=== PATIENT | male | born 1945 | race Caucasian/White ===

== ENCOUNTER 2016-09-26 15:04 | Emergency (ER) | payer OTHER ==
[2016-09-26 15:39] VITALS: BP 150/88; PULSE 89; RESP 18; TEMP 98.2; O2SAT 94
--- NOTE | 2016-09-26 16:35 | UCPHY ---
H & P Time Seen by Provider: 09/26/16 16:32 Patient Type: New HPI/ROS: CHIEF COMPLAINT: Left index injury HISTORY OF PRESENT ILLNESS: This is a 70-year-old male which was working with a transmission on a hoist. Evidently the transmission shifted and pinched his finger between the body of the car and the transmission. Fortunately, it was still on the hoist any was able to push the transmission away and free his hand. He complains of moderate pain over the middle aspect of the left index finger, he is right-handed. He notes that he has somewhat decreased flexion but full extension. He denies any numbness or tingling paresthesias. This all just happened prior to admission Reveuw if Systems: Constitutional - feeling well prior to the injury Musculoskeletal - no joint or muscle pain. Integument - no rashes or wounds Neurological - no numbness, tingling, or paresthesias. Smoking Status: Never smoked Physical Exam: General Appearance: Alert, no distress. Afebrile. Extremities: Mild soft tissue swelling and ecchymosis present on the palmar aspect of the middle phalanx extending to a little bit to the distal and proximal phalanx as well. There are no wounds evident. Neurological: NV intact. Skin: Skin is intact. Warm and dry, no rashes. no lymphangitis. . Constitutional: Initial Vital Signs Temperature (C) 36.8 C 09/26/16 15:30 Heart Rate 89 09/26/16 15:30 Respiratory Rate 18 09/26/16 15:30 Blood Pressure 150/88 H 09/26/16 15:30 O2 Sat (%) 94 09/26/16 15:30 O2 Delivery Mode Room Air Allergies/Adverse Reactions: No Known Allergies Allergy (Unverified 09/26/16 15:39) Home Medications: Medication Instructions Recorded Amlodipine Besylate 09/26/16 Aspirin 81mg (*) 09/26/16 Atorvastatin Calcium 09/26/16 Diuretic 09/26/16 Medical Decision Making - Diagnostics Imaging: My Plain Film Review: Plain film of three-view left index finger view series. Interpreted by radiologist. Films reviewed me. Moderate osteoarthritic changes but no fracture ED Course/Re-evaluation: I had the patient go ahead and flex his fingers fully as best as able and is almost there at 4 as range of motion ovarian the index finger to the palm but not quite. I suspect that he will be able to do that in 2 weeks time. At that time if that is unable to be performed by him he should contact his PCP for arranging physical therapy. In the meantime for the next week he will be in a splint to protect the digit allowed to recover. Differential Diagnosis: The differential diagnosis includes but is not limited to: Fracture, Sprain, Strain, Dislocation, Nerve injury, Contusion Departure - Departure Disposition: Home, Routine, Self-Care Clinical Impression: Finger contusion Condition: Good Instructions: Contusion in Adults (ED) Additional Instructions: Use a splint for the next 1 week. In 2 weeks time if he cannot clench fist completely like a showed you, then see a hand surgeon. Referrals: Isra Valero MD [Primary Care Provider] - As per Instructions - PQRS PQRS Measurement: 134: Depression screening and followup, PRIME MD-PHQ2 (12 years and older) Over the last 2 weeks, how often have you been bothered by any of the following problems? 1. Feeling down, depressed, or hopeless? 2. Little interest or pleasure in doing things? Patient answered no to both 1 and 2 130: Documentation of medications. Reviewed all patient medications, doses, route and frequency. . 226: Do you smoke? No. 47: 65 and older: Advanced care planning. Patient designates surrogate decision maker as son, Edison. 51: 18 years old and older with diagnosis of COPD, spirometry performance. Patient has no history of COPD 52: 18 years old and older with COPD and symptoms of COPD or FEV1<60% predicted prescribed a B Agonist. Patient has no history of COPD
== END 2016-09-26 16:49 | disposition home or self-care (01) ==
LOC: CED 15:04
DX: S60.022A Contusion of left index finger without damage to nail, initial encounter (principal); M19.042 Primary osteoarthritis, left hand; W23.0XXA Caught, crushed, jammed, or pinched between moving objects, initial encounter
CPT/HCPCS: 73130; G0463; 99203-PO

== ENCOUNTER 2017-11-08 12:08 | Inpatient (IN) | payer OTHER ==
--- NOTE | 2017-11-08 12:17 | CPEKG ---
Heart Rate: 88 RR Interval: 682 P-R Interval: 204 QRSD Interval: 88 QT Interval: 364 QTC Interval: 441 P Exeland: -36 QRS Exeland: -18 T Wave Exeland: -25 EKG Severity - ABNORMAL ECG - EKG Impression: SINUS RHYTHM EKG Impression: VENTRICULAR PREMATURE COMPLEX EKG Impression: LOW VOLTAGE IN FRONTAL LEADS EKG Impression: CONSIDER INFERIOR INFARCT EKG Impression: BORDERLINE T ABNORMALITIES, INFERIOR LEADS EKG Impression: pvc Electronically Signed By: Bahman Serrano 10-Nov-2017 06:10:01
[2017-11-08 12:28] LABS: PLATELET COUNT 275 10^3/uL (150-400)
[2017-11-08] MEDS ORDERED: NS 1,000 ML IV ONE (12:37)
--- NOTE | 2017-11-08 13:15 | EDPHY ---
H & P Stated Complaint: Weakness/fatigue, SOB, and dizziness since Thursday. Time Seen by Provider: 11/08/17 12:13 HPI/ROS: CHIEF COMPLAINT: Weakness, dizziness, tachycardia HISTORY OF PRESENT ILLNESS: This is a 71-year-old male who reports that for the last 4 days he has been progressively weak. He describes feeling entirely wiped out. Is unable to perform his usual activities secondary to profound weakness. He states when he rolls over in bed he even feels like his heart rate increases. He has had some lightheadedness but no chest pain or shortness of breath. No fainting. No pain. No headache, cough, chest pain, abdominal pain, vomiting, or diarrhea. He does note that yesterday he had what he thought was a sinus bleeding and coughed up some blood. He has also noted dark, black stools for the last several weeks. Patient also reports that he started taking a full dose aspirin about 30 days ago because he ran out of a baby aspirin. A.m. Similar episode of feeling weak approximately 3 weeks ago. Was seen by his primary care physician. Evaluation at that time was negative. REVIEW OF SYSTEMS: Aside from elements discussed in the HPI, a comprehensive 10-point review of systems was reviewed and is negative. PAST MEDICAL HISTORY: Hypertension. Skin cancer. SOCIAL HISTORY: Lives with his son. Nonsmoker. No alcohol. VITAL SIGNS Reviewed by me. GENERAL: Pleasant elderly male. Quite pale. HEENT: Atraumatic. Eyes: No icterus, no injection. Pale conjunctiva. Mouth : Pale mucous membranes. No erythema or lesions. Neck: supple with no adenopathy. LUNGS: Clear to auscultation bilaterally, no wheezes, rhonchi or rales. CARDIAC: Borderline tachycardic, regular. Systolic murmur auscultated. ABDOMEN: Soft, nontender, nondistended, bowel sounds normal. RECTAL: Small amount brown/black stool on the glove. BACK: No CVA tenderness. EXTREMITIES: No trauma. No edema. Range of motion is normal throughout. NEURO: Alert and oriented, grossly nonfocal. SKIN: Warm and dry, pale nail beds. PSYCHIATRIC: Normal mentation, no agitation. - Personal History Current Tetanus/Diphtheria Vaccine: No Current Tetanus Diphtheria and Acellular Pertussis (TDAP): No - Medical/Surgical History Hx Asthma: No Hx Chronic Respiratory Disease: No Hx Diabetes: No Hx Cardiac Disease: No Hx Renal Disease: No Hx Cirrhosis: No Hx Alcoholism: No Hx HIV/AIDS: No Hx Splenectomy or Spleen Trauma: No Other PMH: HTN. Basal cell ca. hyperlipidemia - Social History Smoking Status: Never smoked Constitutional: Initial Vital Signs Temperature (C) 36.7 C 11/08/17 12:15 Heart Rate 79 11/08/17 12:15 Respiratory Rate 18 11/08/17 12:15 Blood Pressure 127/63 H 11/08/17 12:15 O2 Sat (%) 98 11/08/17 12:15 O2 Delivery Mode Room Air Allergies/Adverse Reactions: No Known Allergies Allergy (Verified 11/08/17 12:15) Home Medications: Medication Instructions Recorded amLODIPine BESYLATE [Norvasc 5 mg 5 mg PO DAILY 09/26/16 (*)] Atorvastatin Calcium [Lipitor 10 5 mg PO HS 11/08/17 mg (*)] Hydrochlorothiazide [HCTZ (*)] 25 mg PO DAILY 11/08/17 Acetaminophen [Tylenol 325mg (*)] 650 mg PO Q4HRS PRN tab 11/10/17 Pantoprazole Sodium [Protonix 40mg 40 mg PO BID #60 tab 11/10/17 (*)] Medical Decision Making - Diagnostics EKG Interpretation: 12-LEAD EKG: Please see the full report in [facility]. My interpretation: Low voltage in the limb leads, no acute ischemic changes. ED Course/Re-evaluation: 8-year-old male presents to the emergency department complaining of profound weakness for the last 4 days. Denies any pain, chest pain, or shortness of breath. He denies any peripheral edema. Does report vomiting some bright red blood which he assumed was from a sinus bleeding in his throat several days ago. He has also noted dark stools and has recently increased his normal 81 mg of aspirin to 324 mg of aspirin. On examination patient has brown/black stool which is guaiac positive. His hemoglobin hematocrit are 9 and 26, down from 14 and 43 3 weeks ago. White count is noted to be 17,000. Renal function intact. Troponin negative. Patient had an IV placed and received a L normal saline. His course was discussed with the hospitalist service. He will be admitted to [facility], Dr. Missy Wan. Remains hemodynamically stable. Patient's care was discussed with the Dr. Carrasquillo from Gastroenterology. 2:30 p.m.. Patient is resting comfortably. We are still awaiting ambulance transfer to [facility]. Patient given a protonix infusion. Differential Diagnosis: Differential diagnosis of the patient's weakness was considered including but not limited to electrolyte abnormality, anemia, cardiac ischemia, arrhythmias and infectious causes. Consult/Admit Bed Type: Dr Wan, [facility] surg - Data Points Laboratory Results: Laboratory Results 11/08/17 12:20 11/08/17 12:20 Medications Given: Discontinued Medications Acetaminophen (Tylenol) 650 mg PO ONCE ONE Stop: 11/09/17 13:51 Last Admin: 11/09/17 15:03 Dose: 650 mg Amlodipine Besylate (Norvasc) 5 mg PO DAILY LELIA Stop: 05/08/18 08:59 Last Admin: 11/09/17 09:17 Dose: Not Given Atorvastatin Calcium (Lipitor) 5 mg PO HS LELIA Stop: 05/07/18 20:59 Last Admin: 11/09/17 22:13 Dose: 5 mg Sodium Chloride (Ns) 1,000 mls @ 0 mls/hr IV ONCE ONE; Wide Open PRN Reason: Protocol Stop: 11/08/17 12:38 Last Admin: 11/08/17 12:43 Dose: 1,000 mls Sodium Chloride (Ns) 500 mls @ 1,000 mls/hr IV EDNOW ONE PRN Reason: Protocol Stop: 11/08/17 14:56 Last Admin: 11/08/17 14:29 Dose: 500 mls Pantoprazole Sodium (Protonix) 40 mg IVP ONCE ONE Stop: 11/08/17 14:42 Last Admin: 11/08/17 14:44 Dose: 40 mg Pantoprazole Sodium (Protonix) 40 mg IVP BID LELIA Stop: 05/07/18 20:59 Last Admin: 11/10/17 09:12 Dose: 40 mg Departure - Departure Disposition: [facility] Inpatient Acute Clinical Impression: Weakness Anemia Qualifiers: Anemia type: other cause Other causes of anemia: other cause, not classified Qualified Code(s): D64.89 - Other specified anemias Gastrointestinal hemorrhage Qualifiers: GI bleed type/associated pathology: unspecified gastrointestinal hemorrhage type Qualified Code(s): K92.2 - Gastrointestinal hemorrhage, unspecified Condition: Good
[2017-11-08] MEDS ORDERED: NS 500 ML IV ONE (14:27)
[2017-11-08] MEDS ORDERED: PANTOPRAZOLE SODIUM 40 MG VIAL IVP ONE (14:41)
[2017-11-08] MEDS ORDERED: PANTOPRAZOLE SODIUM 40 MG VIAL ONE (14:43)
[2017-11-08] MEDS ORDERED: ONDANSETRON 4 MG/2 ML VIAL IVP PRN (19:33)
[2017-11-08] MEDS ORDERED: ACETAMINOPHEN 325 MG TAB PO PRN (19:33)
[2017-11-08] MEDS ORDERED: ONDANSETRON DISINTEGRATING 4 MG TAB PO PRN (19:33)
[2017-11-08] MEDS: PANTOPRAZOLE SODIUM 40 MG VIAL IVP SCH (20:30)
[2017-11-08] MEDS: ATORVASTATIN CALCIUM 10 MG TAB PO SCH (20:30)
--- NOTE | 2017-11-08 20:30 | GHP ---
[f rep st] HISTORY AND PHYSICAL DATE OF ADMISSION: 11/08/2017 CHIEF COMPLAINT: Fatigue, melena. HISTORY OF PRESENT ILLNESS: A 71-year-old male, who started having melena about 3 days ago. He had 1 episode where he coughed up some blood, but no other symptoms that would suggest epistaxis. Melena has continued, although his stools have firmed up somewhat. He has been fatigued as well. About 30 days ago, he increased his aspirin dose from 81 mg to a full aspirin. He stopped his aspirin severa l days ago. He denies any chest pain, shortness of breath. He does take occasional NSAIDs, but not recently. REVIEW OF SYSTEMS: A 10-point review of systems was obtained and has been negative. PAST MEDICAL HISTORY: 1. Hypertension. 2. Hyperlipidemia. MEDICATIONS: Reviewed. SOCIAL HISTORY: No smoking or alcohol. FAMILY HISTORY: Reviewed and noncontributory. PHYSICAL EXAM: VITAL SIGNS: Afebrile. Blood pressure is 113/53, heart rate 82, oxygen saturation 9 6% on room air. GENERAL: The patient is well developed in no apparent distress. HEENT: Nonicteric sclerae. Extraocular movements intact. Moist mucous membranes. NECK: Supple. No thyromegaly. L UNGS: Good effort. Clear to auscultation bilaterally. CARDIOVASCULAR: Regular rate and rhythm. N o murmurs, rubs, or gallops. ABDOMEN: Positive bowel sounds. Soft, nontender, and nondistended. N o hepatosplenomegaly. EXTREMITIES: No clubbing, cyanosis, or edema. SKIN: Without rash. Warm, dry , intact. NEUROLOGIC: Alert and oriented x3. Moving all 4 extremities equally. PSYCH: Normal moo d and affect. LABORATORY DATA: White count elevated at 17, hemoglobin 9.2. BUN elevated at 46. Occult stool posi tive. ASSESSMENT/PLAN: This is a 71-year-old male, presented with upper gastrointestinal bleed. 1. Upper gastrointestinal bleed. The patient is hemodynamically stable. It seems like his bleeding has tapered off some. He will be started on Protonix. I have a call out to Gastroenterology for po ssible EGD tomorrow. Will recheck his hemoglobin in the morning. Holding aspirin. 2. Hypertension. We will hold his hydrochlorothiazide. We will continue the amlodipine. /[id number]/MODL
[2017-11-09 06:04] LABS: PLATELET COUNT 189 10^3/uL (150-400)
[2017-11-09] MEDS ORDERED: PROPOFOL/EMULSION 500 MG/50 ML BOTTLE IV ONE (07:58)
[2017-11-09] MEDS ORDERED: LIDOCAINE 2% 5 ML SDV ONE (07:58)
[2017-11-09] MEDS ORDERED: ALBUTEROL 3 ML DEYVIAL IH PRN (07:59)
[2017-11-09] MEDS ORDERED: ONDANSETRON 4 MG/2 ML VIAL IVP PRN (07:59)
[2017-11-09] MEDS ORDERED: NALOXONE HCL 0.4 MG/ML INJ IVP PRN (07:59)
[2017-11-09] MEDS ORDERED: LR 1,000 ML IV SCH (08:00)
[2017-11-09] MEDS ORDERED: EPINEPHrine 1 MG/ML INJ ONE (08:07)
--- NOTE | 2017-11-09 08:20 | PDANEPAE ---
ANE History of Present Illness EGD ANE Past Medical History - Cardiovascular History Hx Hypertension: Yes - Pulmonary History Hx Oxygen in Use at Home: No Hx Sleep Apnea: No Sleep Apnea Screening Result - Last Documented: Positive - Endocrine History Hx Diabetes: No ANE Review of Systems Review of Systems: - Exercise capacity Exercise capacity: >=4 METS ANE Patient History - Allergies Allergies/Adverse Reactions: No Known Allergies Allergy (Verified 11/08/17 12:15) - Home Medications Home Medications: amLODIPine BESYLATE [Norvasc 5 mg (*)] 5 mg PO DAILY 09/26/16 [Last Taken ] Aspirin [Aspirin 81mg (*)] 81 mg PO DAILY 11/08/17 [Last Taken 11/04/17] Atorvastatin Calcium [Lipitor 10 mg (*)] 5 mg PO HS 11/08/17 [Last Taken ] Hydrochlorothiazide [HCTZ (*)] 25 mg PO DAILY 11/08/17 [Last Taken 11/08/17] - NPO status NPO Since - Liquids (Date): 11/08/17 NPO Since - Liquids (Time): 23:59 NPO Since - Solids (Date): 11/08/17 NPO Since - Solids (Time): 23:59 - Smoking Hx Smoking Status: Never smoked ANE Labs/Vital Signs - Labs Result Diagrams: 11/09/17 04:40 11/09/17 04:40 - Vital Signs Blood Pressure: 141/69 Heart Rate: 76 Respiratory Rate: 16 O2 Sat (%): 98 Height: 172.72 cm Weight: 105.233 kg ANE Physical Exam - Airway Neck exam: FROM Mallampati Score: Class 2 Mouth exam: normal dental/mouth exam - Pulmonary Pulmonary: clear to auscultation - Cardiovascular Cardiovascular: regular rate and rhythym - ASA Status ASA Status: II ANE Anesthesia Plan Anesthesia Plan: GA with mask
--- NOTE | 2017-11-09 08:25 | POSTANESTH ---
Post Anesthetic Evaluation Cardiovascular Status: Normal, Stable Respiratory Status: Normal, Stable Level of Consciousness/Mental Status: Can Participate in Eval, Alert and Oriented Pain Control: Adequate, Prn Tx Ordered Nausea/Vomiting Control: Adequate, Prn Tx Ordered Complications Possibly Related to Anesthesia: None Noted
--- NOTE | 2017-11-09 08:42 | GCON ---
[f rep st] CONSULTATION DATE OF CONSULTATION: 11/09/2017 CONSULTING PHYSICIAN: Missy Wan MD REASON FOR CONSULTATION: Melenic stools. CHIEF COMPLAINT: Melenic stool/weakness. HISTORY OF PRESENT ILLNESS: The patient is a 71-year-old male with a history of NSAID use, who presents to [facility] with complaints of weakness, as well as melenic stools. The patient has been complaining of weakness for at least the last 4-5 days. Due to his weakness, it was hard for him to do his activities of daily living. He also has noticed some shortness of breath, as well as being lightheaded. He states that he may have coughed some blood up a few days ago and ever since then has had 1 melanotic bowel movement each day. The patient denies any exacerbating or alleviating factors to his symptoms. On blood work, he was noted to have a hemoglobin of 9.2. The patient denies any dysphagia, odynophagia, chest pain, or change in recent bowel movements. He did have a colonoscopy approximately 8 years ago and due to a personal history of polyps, was recommended to have a repeat in 5 years, which he has not done. I am being asked by Dr. Wan to evaluate this patient in consultation regarding his melenic stool/anemia. PAST MEDICAL HISTORY: 1. Hypertension. 2. Hyperlipidemia. 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 ALLERGIES: NKDA. MEDICATIONS: 1. Amlodipine. 2. Hydrochlorothiazide. 3. Statin. SOCIAL HISTORY: No history of any alcohol or tobacco use. FAMILY HISTORY: No history of colon cancer or stomach cancer. REVIEW OF SYSTEMS: A 14-point comprehensive review of systems was asked. Pertinent positives and negatives per HPI. PHYSICAL EXAM: VITAL SIGNS: Blood pressure 141/69, temperature 36.6, heart rate 76, respirations 16. GENERAL: Awake, alert, oriented x3. No distress. HEENT: Anicteric sclerae. Moist mucosa. NECK: No JVD. CARDIOVASCULAR: Regular rate and rhythm. Positive S1, S2. No murmurs or gallops appreciated. LUNGS: Clear to auscultation bilaterally. No wheezes, rales or rhonchi. ABDOMEN: Soft, nontender, nondistended. Positive bowel sounds. No guarding or rebound. EXTREMITIES: No clubbing, cyanosis, or edema. NEUROLOGIC: 2 through 12 grossly intact. PSYCH: Normal affect. NEUROLOGIC: 2 through 12 grossly intact. BLOOD WORK: WBCs 8.65, hemoglobin 6.9, hematocrit 20.6, platelets 189. Sodium 142, potassium 3.3, chloride 108, bicarb 26, BUN 27, creatinine 0.8, AST 19, ALT 38, albumin 2.7. Hemoccult stool positive. ASSESSMENT AND PLAN: 1. Melenic stools- with significant post hemorrhagic anemia. Does take a nonsteroidal anti-inflammatory. At this time, recommend to proceed with upper endoscopy to delineate the cause of the symptoms. Etiology? Peptic ulcer disease versus other? The risks of infection, bleeding, perforation, and sedation were discussed. All questions answered. Informed consent was obtained. 2. History of polyps- would recommend repeat colonoscopy, and this can be done as an outpatient. 3. Hypertension. 4. Hyperlipidemia. /[id number]/MODL MTDD
--- NOTE | 2017-11-09 08:43 | GIREPORT ---
[facility] Surgical Services - Endoscopy Department Patient Name: Neeta Bragg Procedure Date: 11/09/2017 7:57 AM Patient Type: Inpatient Attending MD/ ER Physician: Etienne Carrasquillo MD Procedure: Upper GI endoscopy Indications: Melena Patient Profile: 71 year old male presents for evaluaton of melena as well as post hemorrhagic anemia. Providers: Etienne Carrasquillo MD Medicines: Monitored Anesthesia Care Complications: No immediate complications. Estimated blood loss: Minimal. Description of Procedure: After obtaining informed consent, the endoscope was passed under direct vision. Throughout the procedure, the patient's blood pressure, pulse, and oxygen saturations were monitored continuously. The Endoscope was intro duced through the mouth, and advanced to the second part of duodenum. The upp er GI endoscopy was accomplished without difficulty. The patient tolerated th e procedure well. Findings: There were esophageal mucosal changes consistent with long-segment Hawkins ett's esophagus present in the lower third of the esophagus. The maximum longitudinal extent of these mucosal changes was 10 cm in length. A 1cm ulcer was noted in the distal esophagus in the field of Barretts. The m ucosa around the ulcer was biopsied as well as the more proximal mucosa. A large hiatal hernia was present. Patchy mildly erythematous mucosa was found in the gastric body and in the gastric antrum. Biopsies were taken with a cold forceps for histology. The examined duodenum was normal. Biopsies for histology were taken wit h a cold forceps for evaluation of celiac disease. Estimated Blood Loss: Estimated blood loss was minimal. 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 Biopsies taken . - Large hiatal hernia. - Erythematous mucosa in the gastric body and antrum. Biopsied. - Normal examined duodenum. Biopsied. Recommendation: - Return patient to hospital [facility] for ongoing care. - Follow an antireflux regimen. - Use a proton pump inhibitor PO BID. - Await pathology results. - Will need repeat EGD in 8 weeks as well as colonoscopy. - GI will sign off thank you for the consultation. - Thank you for allowing me to participate in the care of your patient. Attending Participation: I personally performed the entire procedure. Etienne Carrasquillo MD Etienne Carrasquillo MD 11/09/2017 8:42:46 AM This report has been signed electronicallyEtienne Carrasquillo MD Number of Addenda: 0 Note Initiated On: 11/09/2017 7:57 AM [email or web address]}
[2017-11-09] MEDS ORDERED: amLODIPine BESYLATE 5 MG TAB PO SCH (09:00)
[2017-11-09] MEDS: PANTOPRAZOLE SODIUM 40 MG VIAL IVP SCH ×2 (09:17→22:14)
--- NOTE | 2017-11-09 12:33 | ASMTCASEMG ---
Living Arrangements What is your living Answers: Alone arrangement? Who do you live with? Type Of Residence What kind of residence do Answers: House you live in? Discharge Plan Comments Coordination Status Comments Notes: Pt is a 71 y/o man admitted w/ anemia, weakness and GI hemorrhaging. Pt had a barretts esophagus procedure today. Pt may able to d/c independent without any needs. No therapies ordered at this time. CM available for changes. Plan: Independent Date Signed: 11/09/2017 12:33 PM Electronically Signed By:FLAVIA Rousseau
--- NOTE | 2017-11-09 13:09 | HOSPPROG ---
Hospitalist Progress Note Assessment/Plan: Patient is a 71-year-old male who started having melena approximately 3 days prior to his admission. He is on aspirin daily and also takes occasional NSAIDs. Today is my 1st encounter with the patient. Chart reviewed. * upper GI bleed -s/p scope, nothing acute seen * acute blood loss anemia -will transfuse one unit of prbc -patient is feeling poorly, tired, worn out, blood pressure is low * hypertension -now w hypotension,hold amlodipine *plan: will require another midnight stay to assure stability with his hgb and hct, will transfuse a unit of PRBC's, patient understands the risks and benefits Subjective: Mohan is feeling tired, run down, no energy. Objective: Vital Signs Temp Pulse Resp BP Pulse Ox 36.9 C 67 16 109/60 96 11/09/17 12:06 11/09/17 12:06 11/09/17 12:06 11/09/17 12:06 11/09/17 12:06 Laboratory Results 11/09/17 09:10 11/09/17 04:40 11/08/17 11/09/17 11/10/17 05:59 05:59 05:59 Intake Total 1500 400 Output Total 0 Balance 1500 400 - Physical Exam Constitutional: appears nourished, not in pain Eyes: PERRL Ears, Nose, Mouth, Throat: hearing normal Cardiovascular: regular rate and rhythym Respiratory: no respiratory distress Gastrointestinal: normoactive bowel sounds Skin: warm, No normal color (pale) Neurologic: AAOx3 Psychiatric: interacting appropriately ICD10 Worksheet Patient Problems: Problems Problem Status Onset Anemia Acute Gastrointestinal hemorrhage Acute Weakness Acute
[2017-11-09] MEDS ORDERED: ACETAMINOPHEN 325 MG TAB PO ONE (13:50)
--- NOTE | 2017-11-09 20:22 | PDMN ---
Medical Necessity Medical necessity: change to IP; los>2mn for UGIB, acute blood loss anemia, fatigue, and hypotension s/p EGD; requires transfusion, monitor h&h; comorbid HTN, HLD, on ASA (stopped [employer]); per order and progress note 11/09/17
[2017-11-09] MEDS: ATORVASTATIN CALCIUM 10 MG TAB PO SCH (22:13)
[2017-11-10 07:56] VITALS: BP 129/58
[2017-11-10] MEDS: PANTOPRAZOLE SODIUM 40 MG VIAL IVP SCH (09:12)
--- NOTE | 2017-11-10 09:23 | HOSPPROG ---
Hospitalist Progress Note Assessment/Plan: Patient is a 71-year-old male who started having melena approximately 3 days prior to his admission. He is on aspirin daily and also takes occasional NSAIDs. * upper GI bleed -s/p EGD with noted ulcer on the long segment of Marquez, has a large hiatal hernia -needs repeat EGD and colonoscopy in 6 weeks * acute blood loss anemia -transfused a unit of PRBC's w some improvement * hypertension -stable *plan:recheck h and h to assure stability, poss dc later Subjective: Mohan is feeling much better today, no complaints. Objective: Vital Signs Temp Pulse Resp BP Pulse Ox 36.6 C 67 18 129/58 H 95 11/10/17 07:55 11/10/17 07:55 11/10/17 07:55 11/10/17 07:55 11/10/17 07:55 Laboratory Results 11/10/17 04:36 11/09/17 04:40 11/09/17 11/10/17 11/11/17 05:59 05:59 05:59 Intake Total 1500 1850 Output Total 1350 400 Balance 1500 500 -400 - Physical Exam Constitutional: no apparent distress, appears nourished, obese Eyes: PERRL Ears, Nose, Mouth, Throat: hearing normal Respiratory: no respiratory distress Skin: warm Musculoskeletal: full muscle strength Neurologic: AAOx3 Psychiatric: interacting appropriately ICD10 Worksheet Patient Problems: Problems Problem Status Onset Anemia Acute Gastrointestinal hemorrhage Acute Weakness Acute
--- NOTE | 2017-11-10 12:53 | GDS ---
[f rep st] DISCHARGE SUMMARY DISCHARGE DIAGNOSES: 1. Upper gastrointestinal bleed. 2. Acute blood loss anemia. 3. Hypertension. HISTORY: Briefly, the patient is a 71-year-old male who started having melena approximately 3 days prior to his admission. He is on aspirin daily and also takes occasional NSAIDs. HOSPITAL COURSE: 1. Upper GI bleed, status post EGD. Has an ulcer on the long segment of Campbell 's, has a large hiatal hernia. He has multiple labs pending. He will need to get a repeat EGD and colonoscopy in 6 weeks. 2. Acute blood loss anemia. He was transfused a unit of packed red blood cells with improvement. 3. Hypertension, stable. DISCHARGE CONDITION: Stable. Blood pressure is 129/58. Heart rate is 67. Respiratory rate of 18. O2 sats on room air are 95%. Temperature is 36.6 Celsius. DISCHARGE MEDICATIONS: Please see the EMR. DISCHARGE INSTRUCTIONS: 1. To get a repeat H and H at the end of this week with his primary care provider. Stop aspirin and all NSAIDs until he follows up with Gastroenterology. 2. To take Protonix b.i.d. for 4 weeks and then daily. 3. To follow up with Dr. Carrasquillo. He has multiple labs pending in regard to biopsies during his procedure here. Copy requested to: Dr. Carrasquillo /[id number]/MODL MTDD
== END 2017-11-10 12:27 | disposition home or self-care (01) | DRG 378 ==
LOC: CED 12:08 → CEDHOLD 13:10 → UNDOADMIN 13:10 → INTOOBSV 13:10 → OBSVTOIN 13:10 → F3E 15:54 → CEDHOLD 15:54 → F3E 11-09 12:10 → UNDODISIN 11-10 12:27
PROVIDERS: ADMIT Internal Medicine; ATTEND Internal Medicine
PROC: 0DB98ZX Excision of Duodenum, Via Natural or Artificial Opening Endoscopic, Diagnostic (ICD-10-PCS; principal; 2017-11-09 08:00)
PROC: 30233N1 Transfusion of Nonautologous Red Blood Cells into Peripheral Vein, Percutaneous Approach (ICD-10-PCS; principal; 2017-11-09 08:00)
PROC: 0DB38ZX Excision of Lower Esophagus, Via Natural or Artificial Opening Endoscopic, Diagnostic (ICD-10-PCS; principal; 2017-11-09 08:00)
PROC: 0DB68ZX Excision of Stomach, Via Natural or Artificial Opening Endoscopic, Diagnostic (ICD-10-PCS; principal; 2017-11-09 08:00)
DX: K92.2 Gastrointestinal hemorrhage, unspecified (principal); D62 Acute posthemorrhagic anemia; K22.710 Barrett's esophagus with low grade dysplasia; I10 Essential (primary) hypertension; E78.5 Hyperlipidemia, unspecified; Z79.82 Long term (current) use of aspirin; K44.9 Diaphragmatic hernia without obstruction or gangrene; K29.50 Unspecified chronic gastritis without bleeding
CPT/HCPCS: 71046-PO; 80048-PO; 80076-PO; 81015-PO; 82270-PO; 84484-PO; 96374; G0378; J0171; J2704; P9016

== ENCOUNTER → 2018-10-07 | Outpatient (CLI) | payer OTHER | LOC: EMCIMAGING 08:31 | PROVIDERS: ATTEND Family Medicine | DX: N62 Hypertrophy of breast (principal) | CPT/HCPCS: 749606PN; 77066-PN ==